=== PATIENT | male | born 1955 | race Caucasian/White ===

== ENCOUNTER 2020-10-16 13:43 | Emergency (ER) | payer OTHER ==
[2020-10-16 15:50] LABS: HEMOGLOBIN 15.1 gm/dl (14.0-17.5); RED BLOOD COUNT 4.98 M/UL (4.20-5.50); WHITE BLOOD COUNT 10.5 K/UL (4.5-11.0)
[2020-10-16 16:13] LABS: BUN/CREATININE RATIO 13 (0-10)
[2020-10-16] MEDS ORDERED: ZOFRAN4 MG PO (18:00)
[2020-10-16] MEDS ORDERED: HYDROCODON-ACE1 EAC4 PO (18:08)
[2020-10-27] MEDS ORDERED: LOSARTAN POTAS100 MG PO (08:23)
[2020-10-27] MEDS ORDERED: LOW DOSE ASPIRI81 MG PO (08:23)
[2020-10-27] MEDS ORDERED: AMLODIPINE BESYL5 MG PO (08:24)
[2020-10-27] MEDS ORDERED: HYDROCHLOROTHIA25 MG PO (08:24)
== END 2020-10-16 18:30 | disposition home or self-care (01) ==
LOC: ER1 13:43
PROVIDERS: Preventive Medicine Occupational Medicine
DX: A08.4 Viral intestinal infection, unspecified (principal); K22.8 Other specified diseases of esophagus; I10 Essential (primary) hypertension
CPT/HCPCS: 36415; 80053; 81001; 82009; 82550; 82553; 83605; 83690; 83874; 83880; 84484; 85025; 85652; 86140; 87086; 93005; 96374; 96375; 96376; 99284; J1170; J2405; Q9967

== ENCOUNTER → 2020-10-27 | Day surgery (SDC) | payer OTHER ==
[~2020-10-27] MED LIST: AMLODIPINE BESYL5 MG PO; HYDROCHLOROTHIA25 MG PO; HYDROCODON-ACE1 EAC4 PO; LOSARTAN POTAS100 MG PO; LOW DOSE ASPIRI81 MG PO; ZOFRAN4 MG PO
== END | disposition home or self-care (01) ==
LOC: OR 07:31
DX: K22.70 Barrett's esophagus without dysplasia (principal); K44.9 Diaphragmatic hernia without obstruction or gangrene; B96.81 Helicobacter pylori [H. pylori] as the cause of diseases classified elsewhere; K21.9 Gastro-esophageal reflux disease without esophagitis; I10 Essential (primary) hypertension; E66.9 Obesity, unspecified; M19.90 Unspecified osteoarthritis, unspecified site; Z79.82 Long term (current) use of aspirin; Z83.3 Family history of diabetes mellitus; Z79.899 Other long term (current) drug therapy
CPT/HCPCS: J2704; J7040